=== PATIENT | male | born 2005 | race African-American/Black ===

== ENCOUNTER 2023-07-04 13:32 | Emergency (ER) | payer OTHER, SELFPAY ==
--- NOTE | ~2023-07-04 | XR_ITS ---
EXAMINATION: XR ankle RT min 3V DATE: 07/04/2023 14:00 INDICATION: Right ankle injury and pain. TECHNIQUE: 4 views of right ankle were obtained. COMPARISON: None. FINDINGS: Bone alignment is normal. No fracture. Joint spaces are normal. IMPRESSION: 1. Normal right ankle. Reviewed, dictated and finalized at location A. IMPRESSION: 1. Normal right ankle.
[2023-07-04 13:44] VITALS: BP 124/73; PULSE 69; RESP 20; TEMP 36.9; O2SAT 100
--- NOTE | 2023-07-04 14:39 | ED.LOWEXIN ---
HPI - Extremity Injury (Lower) General Chief Complaint: Extremity Injury, Lower Stated Complaint: Right Ankle Injury Time Seen by Provider: 07/04/23 14:33 Source: patient and RN notes reviewed Mode of arrival: ambulatory Limitations: no limitations History of Present Illness HPI Narrative: Patient presents today complaining of right ankle pain. He rolled his ankle 2 days ago playing football. He has been ambulatory with increased pain since the injury. Denies numbness or tingling. Currently rates his pain 9/10 with weight-bearing and has been using ice and Tylenol. Related Data Allergies Allergy/AdvReac Type Severity Reaction Status Date / Time shellfish derived Allergy Unknown Verified 07/04/23 13:44 Review of Systems Review of Systems: CONSTITUTIONAL: Denies body aches, fever, chills, or sweats. EYES: Denies visual changes, redness, or discharge. ENT: Denies rhinorrhea, congestion, sore throat, or otalgia. CARDIOVASCULAR: Denies chest pain, palpitations, or edema. RESPIRATORY: Denies cough or dyspnea. GASTROINTESTINAL: Denies abdominal pain, nausea, vomiting, or diarrhea. GENITOURINARY: Denies dysuria or hematuria. SKIN: Denies rash, itching, or wounds. MUSCULOSKELETAL: Denies back pain, or myalgia.+ right ankle pain NEUROLOGIC: Denies headache, numbness, tingling, or weakness. PSYCH: Denies depression or anxiety. PMFSH Comments At time of signature, I have reviewed and agree with nursing past medical, surgical, social and family history unless otherwise noted. Please see nursing chart for further information. There is no relevant family history pertinent to the presenting complaint Exam Narrative: GENERAL: Well-appearing, well-nourished, and in no acute distress. HEAD: Normocephalic, atraumatic. EYES: EOMI. No redness or drainage. Conjunctivae normal. ENT: Mucous membranes pink and moist. NECK: Normal AROM. CHEST: No respiratory distress. EXTREMITIES: Right ankle: Tenderness laterally and anteriorly on the ankle. Very mild edema laterally. No tenderness to the foot or medial ankle. Distal sensation intact. Capillary refill normal. Pedal pulse normal. Full range of motion of the ankle with pain with internal rotation and flexion. SKIN: Warm, dry, no rash. Capillary refill normal. Normal skin turgor. NEURO: No focal deficits. Alert and oriented x3. Gait steady. PSYCH: Normal affect. No signs of depression or anxiety. Course Course Level of Care: Express Care Visit Vital Signs Vital signs: Vital Signs Temperature 98.5 F 07/04/23 13:44 Pulse Rate 69 07/04/23 13:44 Respiratory Rate 20 07/04/23 13:44 Blood Pressure 124/73 07/04/23 13:44 Pulse Oximetry 100 07/04/23 13:44 Oxygen Delivery Room Air 07/04/23 13:44 Temperature 98.5 F 07/04/23 13:44 Pulse Rate 69 07/04/23 13:44 Respiratory Rate 20 07/04/23 13:44 Blood Pressure 124/73 07/04/23 13:44 Pulse Oximetry 100 07/04/23 13:44 Oxygen Delivery Room Air 07/04/23 13:44 Reviewed MDM - Extremity Injury (Lower) MDM Narrative Medical decision making narrative: X-rays negative for fracture. Rd wrap applied. Discussed [id number] medication use and appropriate follow-up if needed. Anticipatory guidance given. Differential Diagnosis Differential diagnosis: Likely ankle sprain and strain and ankle fracture Imaging Data Radiologist's impression: ITS Impressions Ankle X-Ray 07/04/23 14:01 IMPRESSION: 1. Normal right ankle. Critical Care Time Critical Care Time Critical Care Time: No Discharge Plan Discharge Clinical Impression: Right ankle sprain Qualifiers: Encounter type: initial encounter Involved ligament of ankle: unspecified ligament Qualified Code(s): S93.401A - Sprain of unspecified ligament of right ankle, initial encounter Patient Disposition: Home, Self-Care Condition: Stable Instructions: Ankle Sprain (DC) Additional Instructions: You
== END 2023-07-04 14:46 | disposition home or self-care (01) ==
PROVIDERS: Emergency Provider Nurse Practitioner
DX: S93.401A Sprain of unspecified ligament of right ankle, initial encounter (principal); X50.9XXA Other and unspecified overexertion or strenuous movements or postures, initial encounter; Y93.61 Activity, american tackle football
CPT/HCPCS: 73610; 99213; G0463

== ENCOUNTER 2024-01-13 11:52 | Emergency (ER) | payer OTHER, SELFPAY ==
[2024-01-13 12:05] VITALS: BP 124/77; PULSE 70; RESP 16; TEMP 36.8; O2SAT 99
--- NOTE | 2024-01-13 12:38 | ED.URI ---
HPI - URI/Sore Throat General Chief Complaint: Upper Respiratory Infection Stated Complaint: Vomiting/Cough/Diarrhea Time Seen by Provider: 01/13/24 12:38 Source: patient and RN notes reviewed Mode of arrival: ambulatory Limitations: no limitations History of Present Illness HPI Narrative: 18-year-old male presents with concern for one-week history of sinus congestion, drainage, cough. He also reports he has been having diarrhea twice a day for that time and he has had 3 episodes of vomiting throughout the week. He denies fever. Denies any known sick contacts. He took Mucinex MD elicited complaint: sore throat Related Data Allergies Allergy/AdvReac Type Severity Reaction Status Date / Time shellfish derived Allergy Unknown Verified 07/04/23 13:44 Review of Systems Review of Systems: CONSTITUTIONAL: Denies malaise, chills, sweats, or fever. EYES: Denies visual changes, redness, or discharge. ENT: Reports rhinorrhea, congestion, sinus pain, and sore throat. CARDIOVASCULAR: Denies chest pain, palpitations, or edema. RESPIRATORY: Reports cough. Denies dyspnea. GASTROINTESTINAL: Denies abdominal pain. Reports nausea, vomiting, diarrhea SKIN: Denies rash or itching. MUSCULOSKELETAL: Denies myalgia. NEUROLOGIC: Denies headache. All systems reviewed & are unremarkable except as noted in HPI and below PMFSH Comments At time of signature, agree with nursing past medical, surgical, social and family history. There is no relevant family history pertinent to the presenting complaint Exam Narrative: GENERAL: Nontoxic-appearing, well-nourished, and in no acute distress. HEAD: Normocephalic EYES: PERRLA, conjunctivae clear ENT: Nares clear. Mucous membranes moist. TM pearly tucker with dull light reflex bilaterally; no tragal tenderness. Oropharynx not erythematous without lesions. Tonsils not enlarged and without exudate, no drooling, no hoarseness, no trismus, uvula midline. NECK: Supple. No lymphadenopathy CHEST: Clear to auscultation, breath sounds equal. No wheezing, rhonchi, rales, or stridor. No respiratory distress, speaks in full sentences. HEART: Regular rate and rhythm. No murmur heard. SKIN: Warm, dry, no rash. NEURO: Alert and oriented x3. PSYCH: Normal mood and affect Course Course Emergency Course: Patient is aware of diagnosis, understands and agrees to treatment plan. Anticipatory guidance given. Patient agrees to follow-up as directed and is aware of reasons to seek care at the emergency department. Portions of this record may have been created with voice recognition software Level of Care: Express Care Visit Vital Signs Vital signs: Vital Signs Temperature 98.3 F 01/13/24 12:05 Pulse Rate 70 01/13/24 12:05 Respiratory Rate 16 01/13/24 12:05 Blood Pressure 124/77 01/13/24 12:05 Pulse Oximetry 99 01/13/24 12:05 Oxygen Delivery Room Air 01/13/24 12:05 Temperature 98.3 F 01/13/24 12:05 Pulse Rate 70 01/13/24 12:05 Respiratory Rate 16 01/13/24 12:05 Blood Pressure 124/77 01/13/24 12:05 Pulse Oximetry 99 01/13/24 12:05 Oxygen Delivery Room Air 01/13/24 12:05 Reviewed. MDM - URI/Sore Throat MDM Narrative Medical decision making narrative: Differential diagnosis considered: Lantigua virus, strep pharyngitis, allergic rhinitis, upper respiratory tract infection, sinusitis, rhinosinusitis, nasopharyngitis. viral pharyngitis, otitis media, otitis externa, pneumonia, bronchitis, viral cough syndrome, viral syndrome, and influenza. Exam findings show no acute concerns or changes; patient is non-toxic appearing and is in no distress. Patient is appropriate for outpatient treatment and follow-up. Lab Data Attestation: I reviewed the patient's lab results. Critical Care Time Critical Care Time Critical Care Time: No Discharge Plan Discharge Clinical Impression: Sinobronchitis, Nausea vomiting and diarrhea Patient Disposition: Home, Self-Care Conditi
== END 2024-01-13 12:55 | disposition home or self-care (01) ==
PROVIDERS: Emergency Provider Nurse Practitioner
DX: J32.9 Chronic sinusitis, unspecified (principal); J40 Bronchitis, not specified as acute or chronic; R11.2 Nausea with vomiting, unspecified; R19.7 Diarrhea, unspecified
CPT/HCPCS: 99213; G0463

== ENCOUNTER 2024-03-29 19:09 | Emergency (ER) | payer OTHER, SELFPAY ==
[2024-03-29 19:32] VITALS: BP 119/52; PULSE 89; RESP 18; TEMP 37.1; O2SAT 100
[2024-03-29 19:45] VITALS: BP 119/52; PULSE 89; RESP 18; TEMP 37.1; O2SAT 100
--- NOTE | 2024-03-29 19:55 | ED.URI ---
HPI - URI/Sore Throat General Chief Complaint: Upper Respiratory Infection Stated Complaint: poss bronchitis Source: patient, family, RN notes reviewed and old records reviewed Mode of arrival: ambulatory Limitations: no limitations History of Present Illness HPI Narrative: 18 year old male accompanied by significant other presents to express care with complaints of coughing so hard he vomited today. Patient reports that he has been dealing with cough for almost 2 month and having some shortness of breath with cough. Patient reports that he had feeling of being lightheaded at work today like he was going to fall. Patient states he has had headache and backache today from coughing so hard. Patient reports that he was treated for bronchitis in December and his symptoms improved with medications he received.Patient reports that his phlegm has had a light greenish color for a few days, and he has not had any fevers or chills.Patient reports that he has been taking DayQuil and Mucinex for his symptoms. MD elicited complaint: cough, rhinorrhea and nasal congestion Pertinent past history: other (bronchitis) Severity: moderate Able to tolerate fluids by mouth: Yes Treatments prior to arrival: other (Mucinex and DayQuil) Related Data Allergies Allergy/AdvReac Type Severity Reaction Status Date / Time shellfish derived Allergy Unknown Verified 07/04/23 13:44 Review of Systems Review of Systems: CONSTITUTIONAL: Reports malaise, nochills, sweats, or fever. EYES: Denies visual changes, redness, or discharge. ENT: Reports rhinorrhea, congestion, no sinus pain, no otalgia and no sore throat. CARDIOVASCULAR: Denies chest pain, palpitations, or edema. RESPIRATORY: Reports cough.? reports some dyspnea. GASTROINTESTINAL: Denies abdominal pain, nausea, reports incidence of vomiting, no diarrhea SKIN: Denies rash or itching. MUSCULOSKELETAL: Denies myalgia. NEUROLOGIC: reports some headaches. All systems reviewed & are unremarkable except as noted in HPI and below PMFSH Past Medical History Medical History Bronchitis Reactive airway disease as child Social History Social History (Updated 03/30/24 @ 18:22 by Toya Mcfadden NP) Smoking status: Current every day smoker Tobacco type: cigars and e-cigarettes/vaping Additional smoking assessment comments: reports that he has not vaped for 2weeks 03/29/2024 Alcohol intake: current Alcohol use details: social Substance use type: does not use Living arrangements: with family Gender identity (if verbalized by the patient): Male Comments At time of signature, agree with nursing past medical, surgical, social and family history. There is no relevant family history pertinent to the presenting complaint Exam Narrative: GENERAL: Well-appearing, well-nourished, and in no acute distress. HEAD: Normocephalic EYES: PERRLA, conjunctivae clear ENT: Nares clear, turbinates edematous and erythematous, clear discharge, some headaches. Mucous membranes moist. TM pearly tucker with dull light reflex bilaterally; no tragal tenderness. Oropharynx erythematous without lesions. Tonsils not enlarged and without exudate, no drooling, no hoarseness, no trismus, uvula midline.post nasal drainage NECK: Supple. No lymphadenopathy CHEST: scattered wheezes on auscultation, breath sounds equal.+ wheezing, no rhonchi, rales, or stridor. No respiratory distress, speaks in full sentences.harsh cough noted SAO2 100% on room air HEART: Regular rate and rhythm. No murmur heard. SKIN: Warm, dry, no rash. NEURO: Alert and oriented x3. PSYCH: Normal mood and affect Course Course Emergency Course: Patient is aware of diagnosis, understands and agrees to treatment plan.? Anticipatory guidance given.? Patient agrees to follow-up as directed and is aware of reasons to seek care at the emergency department. Portions of this record may have been created with voice recognition software Level of Care: Express Care Visit Vital Signs Vital signs: Vital Signs Temperature 37.1 C 03/29/24 19:32 Pulse Rate 89 03/29/24 19:32 Respiratory Rate 18 03/29/24 19:32 Blood Pressure 119/52 L 03/29/24 19:32 Pulse Oximetry 100 03/29/24 19:32 Oxygen Delivery Room Air 03/29/24 19:32 Temperature 37.1 C 03/29/24 19:45 Pulse Rate 89 03/29/24 19:45 Respiratory Rate 18 03/29/24 19:45 Blood Pressure 119/52 L 03/29/24 19:45 Pulse Oximetry 100 03/29/24 19:45 Oxygen Delivery Room Air 03/29/24 19:45 Reviewed MDM - URI/Sore Throat MDM Narrative Medical decision making narrative: Differential diagnosis considered: Lantigua virus, strep pharyngitis, allergic rhinitis, upper respiratory tract infection, sinusitis, rhinosinusitis, nasopharyngitis. viral pharyngitis, otitis media, otitis externa, pneumonia, bronchitis, viral cough syndrome, viral syndrome, and influenza.? Exam findings show no acute concerns or changes; patient is non-toxic appearing and is in no distress.? Patient is appropriate for outpatient treatment and follow-up. Differential Diagnosis Differential diagnosis: Likely upper respiratory infection, sinusitis, viral infection, bronchitis and other (acute cough) Medical Records Attestation: I reviewed the patient's medical records. Lab Data Attestation: I reviewed the patient's lab results. Critical Care Time Critical Care Time Critical Care Time: No Discharge Plan Discharge Clinical Impression: Acute bronchitis Qualifiers: Bronchitis organism: unspecified organism Qualified Code(s): J20.9 - Acute bronchitis, unspecified Patient Disposition: Home, Self-Care Condition: Stable Instructions: Antibiotic Form, Acute Bronchitis (ED) Additional Instructions: Increase fluids especially juices and water [id number] cough and cold medicine of your choice for your symptoms Prescription cough medicine as directed--caution drowsiness and no driving or alcohol Tylenol or Ibuprofen for any fever or pain Continue your inhaler/nebulizer as directed Steroids as directed--take with food heat to the face 20-30 minutes 4-6 times a day for pain Salt water gargles, throat lozenges or throat sprays as desired Antibiotics as prescribed till completed If your symptoms persist, change or worsen significantly before you can contact your personal physician then please, without delay, go to the emergency department for further evaluation. Follow-up with PCP in 7-10 days or sooner if needed Prescriptions: New albuterol sulfate 90 mcg/actuation HFA aerosol inhaler 2 puff inhalation QID PRN (Reason: shortness of breath or wheezing) Qty: 6.7 0RF azithromycin 250 mg tablet See Rx Instructions .ROUTE .COMPLEX Qty: 6 0RF Rx Instructions: For 250 mg dose pack: take 500 mg today (day 1), then 250 mg for 4 days (days 2-5) promethazine-DM 6.25-15 mg/5 mL syrup 5 ml PO Q4-6H PRN (Reason: cough) Qty: 200 0RF prednisone 20 mg tablet 20 mg PO BID Qty: 10 0RF albuterol sulfate 90 mcg/actuation HFA aerosol inhaler 2 puff inhalation QID PRN (Reason: shortness of breath or wheezing) Qty: 6.7 1RF Follow-up/Referrals: PHYSICIAN NOT ON STAFF,NONSTAFF [Primary Care Provider] - Stand Alone Forms: Work/School Release IP Time of Disposition: 20:07 Quality [place] Com[place] Scale Eyes: Open Verbal: Oriented and Alert Motor: Follows Commands [place] Coma Total Score: 15
== END 2024-03-29 20:24 | disposition home or self-care (01) ==
PROVIDERS: Emergency Provider Registered Nurse
DX: J20.9 Acute bronchitis, unspecified (principal); F17.290 Nicotine dependence, other tobacco product, uncomplicated
CPT/HCPCS: 99213; G0463